=== PATIENT | male | born 1970 | race African-American/Black ===

== ENCOUNTER → 2018-08-05 | Outpatient (REF) | payer OTHER | END | disposition home or self-care (01) | DRG 556 | LOC: DI 08:58 | PROVIDERS: ATTEND Orthopaedic Surgery | DX: M25.512 Pain in left shoulder (principal); Z47.1 Aftercare following joint replacement surgery; Z96.612 Presence of left artificial shoulder joint; M19.012 Primary osteoarthritis, left shoulder ==